=== PATIENT | male | born 1955 | race Caucasian/White ===

== ENCOUNTER → 2019-08-16 | Outpatient (CLI) | payer BC ==
--- NOTE | 2019-08-16 12:28 | PCVCIMAG ---
EXAM: AORTOILIAC DUPLEX INDICATION: Palpable abdominal fullness. FINDINGS: AORTA: Suprarenal aorta measures maximum diameter of 2.9 cm. There is not a fusiform infrarenal aortic aneurysm. The infrarenal aorta measures maximum diameter of 2.8 cm. No aortic stenosis. RIGHT COMMON ILIAC ARTERY: Maximum diameter is 1.5 cm. No significant stenosis. RIGHT EXTERNAL ILIAC ARTERY: No significant stenosis. LEFT COMMON ILIAC ARTERY: Maximum diameter is 1.4 cm. No significant stenosis. LEFT EXTERNAL ILIAC ARTERY: No significant stenosis. IMPRESSION: Ectasia of the infrarenal abdominal aorta measuring up to 2.8 cm. No aortoiliac stenosis seen. LOC:[place] [id number]
--- NOTE | 2019-08-16 13:25 | PCVCIMAG ---
APPROVED REPORT Study performed: 08/16/2019 11:50:49 Exam: Stress Echocardiogram Indication: Chest pain , Dyspnea, syncope, htn, hlp Patient Location: Echo lab Stress Nurse: Nemo Richardson RN Status: routine Ht: 6 ft 3 in HR: 71 bpm BP: 132/86 mmHg Rhythm: NSR Procedure The patient underwent an Exercise Stress Test using the Shawn Protocol. Blood pressure, heart rate, and EKG were monitored. An Echocardiogram was performed by auto body technician in four stages in quad fashion. At peak stress, four selected images were obtained and placed side by side with resting images for comparison. Stress Test Details Stress Test: Exercise stress testing was performed using a Shawn protocol. HR Resting HR: 71 bpmMax Heart Rate (APMHR): 154 bpm Max HR Achieved: 133 bpmTarget HR (85% APMHR): 130 bpm % of APMHR: 86 Recovery HR: 93 bpm HR response to stress: Normal HR response to stress BP Resting BP: 132/86 mmHg Max BP: 146/70 mmHg Recovery BP: 122/70 mmHg BP response to stress: Normal blood pressure response to stress. ECG Resting ECG: Sinus Rhythm Stress ECG: Sinus Rhythm ST Change: Downsloping ST depression Maximum ST Deviation: 4.5 mm Arrhythmia: occasional PVCs Recovery ECG: Sinus Rhythm Recovery ST Change: Downsloping ST depression Recovery ST Deviation: 3 mm Recovery Arrhythmia: rare PVC Clinical Reason for Termination: Maximal effort Stress Symptoms: Dyspnea, non-limiting chest pain Exercise duration: 10 min 9 sec Highest Stage Achieved: Stage 4: 4.2 mph at 16% grade. Exercise capacity: 13.4 METs Overall Exercise Capacity for Age: Normal Scale: Active Angina Score: Non-Limiting Stress ECG Conclusion Fallon Treadmill Score is -16.5 which is High risk. Pre-Stress Echo The resting Echocardiogram showed normal left ventricular contractility with an estimated Ejection Fraction of about >55%. The resting echocardiogram demonstrated normal wall motion in all wall segments. Post-Stress Echo The stress Echocardiogram showed abnormal left ventricular contractility with an estimated Ejection Fraction of about 50-55%. Septal and anterior wall hypokinesis post exercise Conclusion Clinical Response: Ischemic Exercise Capacity: Average Stress ECG Response: Ischemic Stress Echo Images: Ischemic The left ventricle is normal in size and wall thickness in both the rest and stress images. Mild-moderate mitral regurgitation. Trace regurgitation with PAP of 27 mmHg. Aortic sinus of valsalva dilated to 4.8 cm and the ascending aorta is dilated to 4.3 cm. Normal aortic and pulmonic valves, no regurgitation or stenosis. Abnormal stress echocardiogram with maximal exercise stress. Other Information Study Quality: Adequate <Conclusion> The left ventricle is normal in size and wall thickness in both the rest and stress images. Mild-moderate mitral regurgitation. Trace regurgitation with PAP of 27 mmHg. Aortic sinus of valsalva dilated to 4.8 cm and the ascending aorta is dilated to 4.3 cm. Normal aortic and pulmonic valves, no regurgitation or stenosis. Abnormal stress echocardiogram with maximal exercise stress.
== END | disposition home or self-care (01) ==
LOC: PCVCIMAG 11:38
PROVIDERS: ATTEND Internal Medicine
DX: I77.811 Abdominal aortic ectasia (principal); I34.0 Nonrheumatic mitral (valve) insufficiency; I10 Essential (primary) hypertension; F17.200 Nicotine dependence, unspecified, uncomplicated; E78.5 Hyperlipidemia, unspecified
CPT/HCPCS: 93325; 93351; 93978

== ENCOUNTER → 2019-08-20 | Outpatient (CLI) | payer BC ==
--- NOTE | 2019-08-20 11:02 | PCVCIMAG ---
APPROVED REPORT Indications PRE-OP Risk Factors Hypertension: Hyperlipidemia Current Smoker Doppler Spectral Velocity Analysis PSV / EDVPSV / EDV ECA (R) 64 / 14 cm/sECA (L) 78 / 16 cm/s dICA (R) 30 / 16 cm/sdICA (L) 41 / 21 cm/s Radha (R) 59 / 29 cm/smICA (L) 52 / 29 cm/s pICA (R) 33 / 13 cm/spICA (L) 46 / 19 cm/s Bulb (R) 44 / 15 cm/sBulb (L) 55 / 25 cm/s dCCA (R) 63 / 21 cm/sdCCA (L) 61 / 23 cm/s mCCA (R) 74 / 23 cm/smCCA (L) 76 / 26 cm/s Vert (R) 51 / 21 cm/sVert (L) 29 / 9 cm/s ICA/CCA 0.94ICA/CCA 0.85 Basic Measurements Blood Pressure: Pulses: Right Left RightLeft Brachial(Sitting) 127/45pzZn578/84mmHgTemporal Real Time B-Mode Imaging Vert. (R)AntegradeVert. (L)Antegrade Findings The right carotid bulb has mild calcified plaque. The right proximal internal carotid artery shows <40% stenosis. The right common carotid artery shows no significant stenosis. The right external carotid artery shows no significant stenosis. The left carotid bulb has mild calcified plaque. The left proximal internal carotid artery shows <40% stenosis. The left common carotid artery shows no significant stenosis. The left external carotid artery shows no significant stenosis. Conclusion 1. Bilateral internal carotid artery plaquing (less than 40% stenoses) 2. Antegrade vertebral flow.
--- NOTE | 2019-08-20 11:06 | PCVCIMAG ---
APPROVED REPORT Study performed: 08/20/2019 09:04:10 EXAM: Comprehensive 2D, Doppler, and color-flow Echocardiogram Patient Location: Echo lab Room #: [id number]: routine BSA: 2.19 HR: 74 bpmBP: 127/85 mmHg Rhythm: NSR Other Information Study Quality: Good Risk Factors: Cardiac Risk Factors: HTN, Hyperlipidemia Indications Dyspnea Chest Pain 2D Dimensions IVSd: 10.88 (7-11mm)LVOT Diam: 24.00 (18-24mm) LVDd: 48.70 mm PWd: 11.79 (7-11mm)Ascending Ao: 41.70 (22-36mm) LVDs: 31.29 (25-40mm) Left Atrium: 40.78 (27-40mm) Aortic Root: 38.66 mm LV Single Plane 4CH: 56.64 % LV Single Plane 2CH: 63.89 % Biplane EF: 61.1 % Volumes Left Atrial Volume (Systole) Single Plane 4CH: 69.97 mLSingle Plane 2CH: 63.56 mL LA ESV Index: 32.00 mL/m2 Aortic Valve AoV Peak Cesar.: 1.24 m/s AO Peak Gr.: 6.13 mmHgLVOT Max P.79 mmHg LVOT Max V: 1.09 m/s SJ Vmax: 3.96 cm2 Mitral Valve E/A Ratio: 0.8 MV Decel. Time: 191.90 ms MV E Max Cesar.: 0.55 m/s MV A Cesar.: 0.72 m/s IVRT: 76.12 ms TDI E/Lateral E': 11.00E/Medial E': 11.00 Medial E' Cesar.: 0.05 m/s Lateral E' Cesar.: 0.05 m/s Pulmonary Valve PV Peak Cesar.: 1.12 m/sPV Peak Gr.: 4.98 mmHg Pulmonary Vein P Vein S: 0.49 m/sP Vein A: 0.27 m/s P Vein D: 0.35 m/sP Vein A Dur.: 93.4 msec P Vein S/D Ratio: 1.40 Tricuspid Valve TR Peak Cesar.: 1.92 m/s TR Peak Gr.: 14.69 mmHg Left Ventricle The left ventricle is normal size. There is normal LV segmental wall motion. Borderline concentric left ventricular hypertrophy. Left ventricular systolic function is normal. The left ventricular ejection fraction is within the normal range. LVEF is 60-65%. Mild diastolic dysfunction is present (impaired relaxation pattern). Right Ventricle The right ventricle is normal size. The right ventricular systolic function is normal. Atria The left atrium size is normal. The right atrium size is normal. Aortic Valve The Aortic valve is mildly calcified. No aortic regurgitation is present. There is no aortic valvular stenosis. Mitral Valve The mitral valve is normal in structure. There is no mitral valve regurgitation noted. No evidence of mitral valve stenosis. Tricuspid Valve The tricuspid valve is normal in structure. Trace tricuspid regurgitation. Unable to assess PA pressure. Pulmonic Valve The pulmonary valve is normal in structure. There is no pulmonic valvular regurgitation. Great Vessels The aortic root is normal in size. The sinuses of valsalva (4.2 cm) and the ascending aorta (3.9 cm). IVC is not well visualized. Pericardium There is no pericardial effusion. <Conclusion> Left ventricular systolic function is normal. There is normal LV segmental wall motion. LVEF is 60-65%. Mild diastolic dysfunction The Aortic valve is mildly calcified. No aortic regurgitation or stenosis. The mitral valve is normal in structure. No mitral valve regurgitation. The sinuses of valsalva (4.2 cm) and the ascending aorta (3.9 cm), mildly dilated. The pulmonary artery systolic pressure could not be reliably ascertained There is no pericardial effusion.
== END | disposition home or self-care (01) ==
LOC: PCVCIMAG 09:00
PROVIDERS: ATTEND Internal Medicine
DX: Z01.818 Encounter for other preprocedural examination (principal); I65.23 Occlusion and stenosis of bilateral carotid arteries
CPT/HCPCS: 93306; 93880

== ENCOUNTER → 2019-08-23 | Outpatient (CLI) | payer BC ==
--- NOTE | 2019-08-23 14:07 | PCVCIMAG ---
EXAM: DUPLEX ULTRASOUND OF THE RIGHT GROIN INDICATION: Groin swelling and pain. 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 FINDINGS: No pseudoaneurysm is present. The common femoral artery and vein are patent. No arteriovenous fistula is seen. IMPRESSION: Study is negative for pseudoaneurysm. Incidental note is made of a 2.4 x 3.4 x 4.1 cm subcutaneous hematoma right groin. LOC:[id number]
== END | disposition home or self-care (01) ==
LOC: PCVCIMAG 13:18
PROVIDERS: ATTEND Internal Medicine
DX: N50.1 Vascular disorders of male genital organs (principal); R19.09 Other intra-abdominal and pelvic swelling, mass and lump; F17.200 Nicotine dependence, unspecified, uncomplicated
CPT/HCPCS: 93926